=== PATIENT | male | born 1955 | race African-American/Black ===

== ENCOUNTER 2020-09-26 08:54 | Outpatient (CLI) | payer MEDICARE | END 2020-09-26 08:55 | disposition home or self-care (01) | LOC: CSHWCC 08:54 | PROVIDERS: ATTEND Nurse Practitioner Family | DX: I87.2 Venous insufficiency (chronic) (peripheral) (principal); E11.622 Type 2 diabetes mellitus with other skin ulcer; L97.911 Non-pressure chronic ulcer of unspecified part of right lower leg limited to breakdown of skin; L97.921 Non-pressure chronic ulcer of unspecified part of left lower leg limited to breakdown of skin; R60.0 Localized edema; E11.40 Type 2 diabetes mellitus with diabetic neuropathy, unspecified; E78.2 Mixed hyperlipidemia; I10 Essential (primary) hypertension | CPT/HCPCS: 99214; G0463 ==

== ENCOUNTER 2020-10-17 14:14 | Outpatient (CLI) | payer MEDICARE | END 2020-10-17 14:15 | disposition home or self-care (01) | LOC: CSHWCC 14:14 | PROVIDERS: ATTEND Nurse Practitioner Family | DX: L89.223 Pressure ulcer of left hip, stage 3 (principal); L89.313 Pressure ulcer of right buttock, stage 3; L89.323 Pressure ulcer of left buttock, stage 3; T81.30XD Disruption of wound, unspecified, subsequent encounter; S61.208D Unspecified open wound of other finger without damage to nail, subsequent encounter; T30.0 Burn of unspecified body region, unspecified degree; G82.50 Quadriplegia, unspecified; M86.152 Other acute osteomyelitis, left femur; Z74.01 Bed confinement status; W51.XXXD Accidental striking against or bumped into by another person, subsequent encounter | CPT/HCPCS: 97139; G0463; 99214 ==

== ENCOUNTER 2020-10-30 14:10 | Outpatient (CLI) | payer MEDICARE | END 2020-10-30 14:11 | disposition home or self-care (01) | LOC: CSHWCC 14:10 | PROVIDERS: ATTEND Nurse Practitioner Family | DX: S61.208D Unspecified open wound of other finger without damage to nail, subsequent encounter (principal); T81.30XD Disruption of wound, unspecified, subsequent encounter; T30.0 Burn of unspecified body region, unspecified degree; L89.223 Pressure ulcer of left hip, stage 3; L89.313 Pressure ulcer of right buttock, stage 3; L89.323 Pressure ulcer of left buttock, stage 3; M86.152 Other acute osteomyelitis, left femur; Z74.01 Bed confinement status | CPT/HCPCS: 97139; G0463; 99213 ==

== ENCOUNTER 2020-11-13 10:37 | Outpatient (CLI) | payer MEDICARE | END 2020-11-13 10:38 | disposition home or self-care (01) | LOC: CSHWCC 10:37 | PROVIDERS: ATTEND Nurse Practitioner Family | DX: E11.622 Type 2 diabetes mellitus with other skin ulcer (principal); L97.911 Non-pressure chronic ulcer of unspecified part of right lower leg limited to breakdown of skin; L97.921 Non-pressure chronic ulcer of unspecified part of left lower leg limited to breakdown of skin; R60.0 Localized edema; E11.40 Type 2 diabetes mellitus with diabetic neuropathy, unspecified; E78.2 Mixed hyperlipidemia; I10 Essential (primary) hypertension; I87.2 Venous insufficiency (chronic) (peripheral) | CPT/HCPCS: 97139; G0463; 99213 ==

== ENCOUNTER 2021-01-31 08:30 | Outpatient (CLI) | payer MEDICARE, MEDICAID | END 2021-01-31 08:31 | disposition home or self-care (01) | LOC: CSHWCC 08:30 | PROVIDERS: ATTEND Nurse Practitioner Family | DX: E11.622 Type 2 diabetes mellitus with other skin ulcer (principal); E11.40 Type 2 diabetes mellitus with diabetic neuropathy, unspecified; E78.2 Mixed hyperlipidemia; I10 Essential (primary) hypertension; I87.2 Venous insufficiency (chronic) (peripheral); R60.0 Localized edema; L98.499 Non-pressure chronic ulcer of skin of other sites with unspecified severity | CPT/HCPCS: 29581 ==

== ENCOUNTER 2021-02-14 08:50 | Outpatient (CLI) | payer MEDICARE, MEDICAID | END 2021-02-14 08:51 | disposition home or self-care (01) | LOC: CSHWCC 08:50 | PROVIDERS: ATTEND Nurse Practitioner Family | DX: E11.622 Type 2 diabetes mellitus with other skin ulcer (principal); R60.0 Localized edema; I87.2 Venous insufficiency (chronic) (peripheral); E78.2 Mixed hyperlipidemia; I10 Essential (primary) hypertension; E11.40 Type 2 diabetes mellitus with diabetic neuropathy, unspecified | CPT/HCPCS: 97139; G0463; 99213 ==